=== PATIENT | male | born 1980 | race Caucasian/White ===

== ENCOUNTER 2021-04-17 10:30 | Outpatient (RCR) | payer BC, SELFPAY ==
[2019-02-19 07:45] VITALS: BMI 25.7
--- NOTE | 2021-03-16 13:53 | HP.PTEVAL_ITS ---
Patient's Visit Information ORI CARCAMO is a 40 year old M referred to Physical Therapy by Dr. Marzena Caslte DO with a diagnosis of RIGHT SHOULDER PAIN. Date of Evaluation: 03/16/21 Physical Therapist: Gracy Kramer PT, Cert MDT - Visit Plan Frequency: 2-3x /Week Duration: 4-6 Weeks Plan: FOCUS ON RIGHT SHOULDER ROTATOR CUFF ROM, STRETCHING AND STRENGTHEING. POSTURE CORRECTION/STRENGTHENING, INSTRUCTION IN APPROPRIATE BODY MECHANICS AND ACTIVITY MODIFICATIONS. KARLENE UE ROM, STRETCHING AND STRENGTHENING. HEP INSTRUCTION. - Subjective Diagnosis: R SHLD PAIN. 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 [employer]. Disability: NO. Present symptoms: RIGHT SHOULDER PAIN. INTERMITTENT RIGHT SHOULDER TINGLING. Present since: APR 2020. NO NECK PAIN. Pain Scale: Worst - 6/10 Least - 0/10. Currently: 0/10. Commenced as a result of: NO APPARENT REASON OTHER THAN MOVING A BOOKCASE ON A LINDA - HURT LATER. Symptoms at onset: RIGHT SHOULDER PAIN. Worse: SOME SPECIFIC MOTIONS LIKE PULLING BOW BACK. THE FIRST 3-5 PULLS HURT MORE THAN FOLLOWING ONES. PUTTING HAND UP BEHIND HEAD - RAISING ELBOW. Better: PAIN IS FLEETING AND DOES NOT LAST AFTER PROVACATIVE MVMT IS STOPPED. Disturbed sleep: NO. Previous history/Previous treatment: MANY YEARS AGO TEMPORARILY DISLOCATED IT. PITCHER AND OTHER POSITIONS IN HS BASEBALL. NO R SHLD SX. NO R SHLD INJECTIONS. NO NECK SX. NO NECK INJECTIONS. This episode: PRESCRIPTION ANTI-INFLAMMATORY. Dizziness: NO. Tinnitis: NO. Nausea: NO. Shortness of Breath: NO. Difficulty Swollowing: NO. Gait: NORMAL. Accidents: NO. Unexplained weight loss: NO. Imaging: NONE. PMH/Recent major surgery: ORIF RIGHT ANKLE 2016 - Objective Sitting Posture/Standing Posture: POOR. FH. RS'S. Active Correction of posture: NE. Other Observations: INDEP GAIT AND TRANSFERS. Motor deficit: L UE 5/5 EXCEPT SHLD GIRDLE 4/5, RIGHT UE 5/5 EXCEPT SHLD GIRDLE 3+/5 AND PAIN WITH TESTING. RIGHT HAND DOMINANT WITH A RIGHT .NET DEVELOPER STRENGTH OF 95 LBS AND L 110 LBS. Sensory deficit: KARLENE UE LIGHT TOUCH SENSATION INTACT AND SYMMETRICAL. ROM deficit: RIGHT SHLD PASSIVE FLEX IN SUPINE TO 160 DEG AND IR TO 45 DEG BOTH WITH END RANGE PAIN. EXCESSIVE R SHLD ER. Reflexes: 2/3 KARLENE UE'S. Dural Signs: NEGATIVE KARLENE UE'S. Cervical Mvmt Loss: Flex: NIL. Pro: NIL. Ext: NIL. Ret: MIN. RSB: NIL. LSB: MIN. R Rot: NIL. L Rot: NIL. Postural strength: POOR. Palpation: POSTERIOR R SHLD TENDERNESS. TREATMENT: THER ACT - POSTURE CORRECTION IN SITTING WITH LUMBAR SUPPORT AND POSTURAL TRAINING. INITIATED HEP WITH OTB ER AND GTB IR 3X10 EA TOLERATED ONCE A DAY. - Goals Goal 1:: DECREASE C/O RIGHT SHOULDER PAIN Goal Time Frame: 4-6 Weeks Goal 2:: INCRASE RIGHT SHLD ROM TO FULL Goal Time Frame: 4-6 Weeks Goal 3:: INCREASE FUNCTIONAL STRENGTH OF R SHLD TO FULL TO ALLOW TO RETURN TO FULL PAINFREE PRIOR LEVEL OF FUNCTION Goal Time Frame: 4-6 Weeks Goal 4:: PATIENT WILL BE INDEP WITH A HEP FOR CONTINUED IMPROVEMENT ONCE FORMAL PHYSICAL THERAPY CONCLUDES. Goal Time Frame: 4-6 Weeks - Anticipated Interventions Patient/Client Instruction: Educate patient on: Condition, Plan of Care, Risk Factors For the Purpose of:: To improve self management Therapeutic Exercise to Include: Strength training, Postural training, Flexibil ty training, Neuromotor development, Scapular Strength/Stabilization For the Purpose of:: To decrease pain, To improve muscle performance and motor function, To increase tolerance to activity/condition/position, To improve ability of physical actions for home/community/work/leisure Thank you for the opportunity to evaluate your patient. For Medicare and Medicare HMO plans, please review the plan of care and approve it. It will need to be FAXED BACK to us at [phone] for Medicare purposes. For Medicare only, by signing this I certify the plan of care. Please let me know if there are questions or concerns regarding this plan of care. Physician Signature: Date:
--- NOTE | 2021-04-17 10:54 | HP.PTDCSUM ---
It has been my pleasure to treat ORI CARCAMO referred by Dr. Marzena Castle DO, with the diagnosis of RIGHT SHOULDER PAIN for a total of 13 visit(s). Discharge Date: Please see the following information for a summary of their discharge status. Subjective: He feels that he is a lot stronger- has not tried to pull his bow back yet. % Improvement: 85 Objective/Function: Sitting Posture/Standing Posture: fair. Motor deficit: L UE 5/5 EXCEPT SHLD GIRDLE 4+/5, RIGHT UE 5/5 EXCEPT SHLD GIRDLE 4+/5 ROM deficit: WFL in all planes discomfort at end range flexion/abduction. Scap: fair Palpation: not tender to touch Goal 1:: DECREASE C/O RIGHT SHOULDER PAIN Goal Progress: Goal Met Goal 2:: INCRASE RIGHT SHLD ROM TO FULL Goal Progress: Goal Met Goal 3:: INCREASE FUNCTIONAL STRENGTH OF R SHLD TO FULL TO ALLOW TO RETURN TO FULL PAINFREE PRIOR LEVEL OF FUNCTION Goal Progress: Goal Met Goal 4:: PATIENT WILL BE INDEP WITH A HEP FOR CONTINUED IMPROVEMENT ONCE FORMAL PHYSICAL THERAPY CONCLUDES. Goal Progress: Goal Met Plan: 04/17/2021: Discharge to I HEP. FOCUS ON RIGHT SHOULDER ROTATOR CUFF ROM, STRETCHING AND STRENGTHEING. POSTURE CORRECTION/STRENGTHENING, INSTRUCTION IN APPROPRIATE BODY MECHANICS AND ACTIVITY MODIFICATIONS. KARLENE UE ROM, STRETCHING AND STRENGTHENING. HEP INSTRUCTION. If there are questions or concerns regarding this patient's physical therapy, please feel free to call me at [phone]. Thank you for the referral of this patient. Sincerely, Lucero Rosales, DPT Balance/Gait/Functional tests - Balance/Special Test Scores Quick DASH Score: [phone]
== END 2021-04-17 19:00 | disposition home or self-care (01) ==
LOC: PT 10:30
PROVIDERS: PCP Internal Medicine; Referring Provider Internal Medicine; Visit Provider Internal Medicine
DX: M25.511 Pain in right shoulder (principal)
CPT/HCPCS: 97110; 97161; 97164; 97530